=== PATIENT | male | born 1985 | race Caucasian/White ===

== ENCOUNTER 2020-08-02 10:14 | Emergency (ER) | payer OTHER, SELFPAY ==
[2020-08-02 10:15] VITALS: BP 124/76; PULSE 70; RESP 20; TEMP 36.6; O2SAT 98
--- NOTE | 2020-08-02 10:51 | ED.BACK ---
HPI - Back Pain/Injury General Chief Complaint: Back Pain/Injury Stated Complaint: hurt back Time Seen by Provider: 08/02/20 10:51 Source: patient Mode of arrival: ambulatory Limitations: no limitations History of Present Illness HPI Narrative: 35-year-old man with a history of lumbar disc disease comes in today complaining of pain in his right lower back that radiates down his lower leg and numbness on his right anterior thigh. It started in the last few days. 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 He has had no falls, fever, night sweats, incontinence, perineal numbness, or weakness. He had a similar episode approximately 5 years ago. MD elicited complaint: back pain Pertinent past history: prior back pain Onset (ago): day(s) Timing: constant Severity: severe Similar Symptoms Previously: Yes Quality: sharp and aching Location: lumbar spine Radiation: right upper leg Exacerbating factors: movement Relieving factors: none Context: while lifting Associated symptoms: numbness Related Data Allergies Allergy/AdvReac Type Severity Reaction Status Date / Time red dye Allergy Unknown unknown Verified 08/02/20 11:05 promethazine [From Phenergan] AdvReac Unknown Verified 08/02/20 11:08 Review of Systems Constitutional: Constitutional: Denies chills and Denies fever(s) Cardiovascular: Cardiovascular: Denies chest pain Respiratory: Respiratory: Denies cough and Denies dyspnea Gastrointestinal: Gastrointestinal: Denies abdominal pain, Denies nausea and Denies vomiting Genitourinary: Genitourinary: Denies hematuria and Denies urinary incontinence Musculoskeletal: Musculoskeletal: Reports back pain and Denies joint swelling Integumentary/Breasts: Skin/Breast: Denies pruritus, Denies erythema and Denies rash Neurologic: Denies vertigo, Denies dizziness and Denies syncope [facility] Surgical History Surgical History (Updated 08/02/20 @ 11:01 by Koby Larry MD) S/P tube myringotomy Social History Social History Smoking status: Never smoker Alcohol intake: never Substance use: never Living arrangements: with family Exam Const: General: healthy appearing, no acute distress and alert Orientation/consciousness: patient oriented x3 Limitations: no limitations HENMT: Mouth: Yes moist mucous membranes Throat: posterior oropharynx normal Eyes: Conjunctivae: conjunctivae normal Pupils: Equal, round and reactive pupils present EOM: EOMs intact bilaterally Resp: Effort & Inspection: normal respiratory effort and not labored Auscultation: clear to auscultation bilaterally, no rales, no rhonchi and no wheezes Cardio: Rate: regular rate Rhythm: regular rhythm Heart sounds: no murmurs Back/Spine/Pelvis: Other: mild paraspinal muscle tenderness in the right mid lumbar spine. There is no swelling, masses, midline tenderness, or abnormal contour. Skin: General skin exam: normal color, no jaundice and no pallor Rashes: no rashes Neuro: General: patient oriented x3, moves all extremities and no meningeal signs Speech: normal speech Other: Antalgic gait Extrem: General: normal to inspection and no clubbing, cyanosis or edema Psych: Appearance: grossly normal and well kempt Mental Status: mental status grossly normal Affect: normal affect Attitude: cooperative Thought content: Yes Normal thought content present Discharge Plan Discharge Prescriptions: New hydrocodone-acetaminophen [[place]] 5-325 mg tablet 1 tablet PO Q6H PRN (Reason: pain) Qty: 20 RF: 0 pantoprazole 40 mg tablet,delayed release (DR/EC) 40 mg PO HS 28 Days Qty: 28 RF: 0 Stand Alone Forms: Work/School Release IP Time of Disposition: 11:09
--- NOTE | 2020-08-02 10:57 | PC.NURSE ---
report to angelina walker
[2020-08-02] MEDS: HYDROcodone/acetaminophen (*CRX) 5-325 MG TABLET 1 TAB PO (11:04)
[2020-08-02 11:20] VITALS: BP 137/83
--- NOTE | 2020-08-12 09:02 | ED.BACK ---
HPI - Back Pain/Injury General Chief Complaint: Back Pain/Injury Stated Complaint: hurt back Source: patient Mode of arrival: ambulatory Limitations: no limitations History of Present Illness HPI Narrative: 35-year-old man with a remote history of low back pain comes in today complaining of several days of low back pain. he states he does a lot a lifting at his job and was sore after he lifted some weights bags 5 days ago but the pain subsided. The pain came back yesterday. States he has some decreased sensation in his right anterior thigh. Denies history of lumbar fracture, surgery, tingling, weakness or trauma. MD elicited complaint: back pain Pertinent past history: prior back pain Onset (ago): day(s) (5) Timing: intermittent Severity: severe Similar Symptoms Previously: Yes Quality: sharp and aching Exacerbating factors: movement Relieving factors: none Associated symptoms: numbness Related Data Allergies Allergy/AdvReac Type Severity Reaction Status Date / Time red dye Allergy Unknown unknown Verified 08/02/20 11:05 promethazine [From Phenergan] AdvReac Unknown Verified 08/02/20 11:08 Review of Systems Constitutional: Constitutional: Denies chills and Denies fever(s) Gastrointestinal: Gastrointestinal: Denies abdominal pain, Denies nausea and Denies vomiting Genitourinary: Genitourinary: Denies hematuria, Denies oliguria and Denies urinary incontinence Musculoskeletal: Musculoskeletal: Reports back pain, Denies arthralgias and Denies joint swelling Integumentary/Breasts: Skin/Breast: Denies pruritus, Denies erythema and Denies rash Neurologic: Denies vertigo, Denies dizziness, Denies syncope, Denies focal weakness and Reports numbness PM[facility] Surgical History Surgical History S/P tube myringotomy Social History Social History Smoking status: Never smoker Alcohol intake: never Substance use: never Living arrangements: with family Exam Const: General: alert Orientation/consciousness: patient oriented x3 Other: moderate acute distress Resp: Effort & Inspection: normal respiratory effort and not labored Auscultation: clear to auscultation bilaterally, no rales, no rhonchi and no wheezes Cardio: Rate: regular rate Rhythm: regular rhythm Neuro: General: patient oriented x3, moves all extremities, no focal motor deficits and CN's II-XI intact bilaterally Speech: normal speech Gait exam (Neuro): Normal gait present Other: DTRs 2+ and symmetric in the patellar and calcaneal tendons bilaterally Extrem: General: normal to inspection and no clubbing, cyanosis or edema Psych: Appearance: grossly normal and well kempt Mental Status: mental status grossly normal Affect: normal affect Attitude: cooperative Thought content: Yes Normal thought content present Course Vital Signs Vital signs: Vital Signs Temperature 36.6 C 08/02/20 10:15 Pulse Rate 70 08/02/20 10:15 Respiratory Rate 20 08/02/20 10:15 Blood Pressure 124/76 08/02/20 10:15 Pulse Oximetry 98 08/02/20 10:15 Temperature 36.6 C 08/02/20 10:15 Pulse Rate 70 08/02/20 10:15 Respiratory Rate 20 08/02/20 10:15 Blood Pressure 137/83 08/02/20 11:20 Pulse Oximetry 98 08/02/20 10:15 Discharge Plan Discharge Clinical Impression: Strain of lumbar region, Sciatica Patient Disposition: Home, Self-Care Condition: Stable Instructions: Sciatica (ED) Prescriptions: New hydrocodone-acetaminophen [[place]] 5-325 mg tablet 1 tablet PO Q6H PRN (Reason: pain) Qty: 20 RF: 0 pantoprazole 40 mg tablet,delayed release (DR/EC) 40 mg PO HS 28 Days Qty: 28 RF: 0 Stand Alone Forms: Work/School Release IP Time of Disposition: 11:09
== END 2020-08-02 11:24 | disposition home or self-care (01) ==
PROVIDERS: Emergency Provider Emergency Medicine; PCP Internal Medicine
DX: S39.012A Strain of muscle, fascia and tendon of lower back, initial encounter (principal); M54.30 Sciatica, unspecified side; X50.9XXA Other and unspecified overexertion or strenuous movements or postures, initial encounter
CPT/HCPCS: 99282; 99283; A9270